=== PATIENT | male | born 1975 | race Caucasian/White ===

== ENCOUNTER 2025-09-07 19:24 | Emergency (ER) | payer BC | END 2025-09-07 21:15 | disposition home or self-care (01) | LOC: JD.ED 19:24 | DX: M77.8 Other enthesopathies, not elsewhere classified (principal); F17.200 Nicotine dependence, unspecified, uncomplicated | CPT/HCPCS: 73110; 99283; J7512 ==

== ENCOUNTER 2025-10-29 16:18 | Emergency (ER) | payer BC | END 2025-10-29 18:20 | disposition home or self-care (01) | LOC: JD.ED 16:18 | DX: B34.9 Viral infection, unspecified (principal) | CPT/HCPCS: 71046; 71046-26; 87428-QW; 99282; 99283 ==